=== PATIENT | male | born 1990 | race Two or more races ===

== ENCOUNTER 2019-09-21 22:49 | Emergency (ER) | payer SELFPAY ==
[~2019-09-21] VITALS: Ht 177.8 cm; Wt 72.6 kg
[2019-09-21 23:31] VITALS: BP 120/82
== END 2019-09-22 01:57 | disposition left against medical advice (07) ==
LOC: EDSEX 22:49 → EDBD 22:49 → ER 22:49
DX: Z02.89 Encounter for other administrative examinations (principal); R53.83 Other fatigue